=== PATIENT | female | born 1985 | race Hispanic/Latino ===

== ENCOUNTER 2022-10-19 08:00 | Outpatient (RCR) | payer MEDICAID, SELFPAY ==
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
--- NOTE | 2022-09-21 09:18 | HP.PTREVAL ---
Dawna Shields, NHI-C, It has been my pleasure to treat MIGUEL BRADLEY over the last 9 visits for Chronic neck pain, G89.29; Somatic dysfunction lumbar region, M99.03. Please see the progress note below for an update on the physical therapy plan of care! Subjective: Patient reports that she feels that she is getting better- she feels that her shoulders are less heavy- but she has not started her bath bomb season hasn't started yet- but that will happen soon. She is not as much pain. Worst: 01/07 Agg: movement and still wakes her up at night. Not sure if its how she sleeps. She is doing the bands at home to keep moving- she would like to continue therapy. No N/T today but comes and goes depending on how she is moving. Objective/Function: Posture- Good posture in standing. Palpation- Vague tenderness over whole cervical, thoracic, and lumbar spine. Cervical AROM- WNL for all motions. Shoulder AROM- WNL for all motions. Shoulder strength- Grossly 4+/5 for all motions bilaterally. Lumbar AROM- WNL for all motions and mild pain with lumbar extension. Hip PROM- WNL bilaterally. LE strength- Grossly 4+/5 for all motions bilaterally. Core strength- 4+/5. Sensation- WNL bilateral lower extremities. Gait- Pt. ambulates with no gait deviations. Plan Plan: 09/21/22: 2x a week for 4 weeks- Focus on proper lifting techniques. * Add additional UE/CORE exs. *Review work related lifting activities in decrease WBing environment. Continue with trial of aquatic physical therapy to work on improving neck, scapular, core, and back strength. Progress to land if needed to work on improving neck, core, and back strength. Balance/Gait/Functional tests - Balance/Special Test Scores Oswestry Low Back Score: 17 Goals Goal 1:: Pt. will be able to stand/walk for at least 30 minutes with pain < 5/10. Goal Time Frame: 4-6 Weeks Goal Progress: Progressing Goal 2:: Pt. will be able to sleep a full night with no pain. Goal Time Frame: 4-6 Weeks Goal Progress: Progressing Goal 3:: Pt. will be able to sit for at least 1 hour with pain < 5/10. Goal Time Frame: 4-6 Weeks Goal Progress: Progressing Goal 4:: Pt. will rate pain at worst at 5/10 with ADL's. Goal Time Frame: 4-6 Weeks Goal Progress: Progressing Goal 5:: Pt. will rate pain at worst at 5/10 after a day of work. Goal Time Frame: 4-6 Weeks Goal Progress: Progressing Goal 6:: Pt. will improve Oswestry Disability score < 20% in order to improve ADL's. Goal Time Frame: 4-6 Weeks Goal Progress: Progressing Anticipated Interventions Patient/Client Instruction: Educate patient on: Condition, Plan of Care, Benefits of Fitness Program For the Purpose of:: To decrease pain, To improve ability to perform ADL's, To improve performance and independence with ADL's, To assume or resume ADL's, To improve health and function, To improve tolerance to ADL's Therapeutic Exercise to Include: Strength training, Endurance training, Flexibilty training, In an aquatic setting, Active ROM, Dynamic Lumbar Stabilization, Scapular Strength/Stabilization Comment: Focus on neck, scapular, core, and back strengthening. For the Purpose of:: To improve ability to perform ADL's, To improve performance and independence with ADL's, To assume or resume ADL's, To improve tolerance to ADL's Please do not hesitate to contact me at [phone] by phone or if you have questions or concerns regarding this new plan of care! Sincerely, Nancy Joseph DPT
--- NOTE | 2022-10-19 08:22 | HP.PTDCSUM ---
It has been my pleasure to treat MIGUEL BRADLEY referred by XANDER Castle, with the diagnosis of Chronic neck pain, G89.29; Somatic dysfunction lumbar region, M99.03 for a total of 16 visit(s). Discharge Date: Please see the following information for a summary of their discharge status. Subjective: Patient reports that she is about the same. The low back has been the most irritated due to the demand of her job. She is now also working at [employer]. She is making [employer]. She feels that her core is stronger but the pain has not changed a lot. She feels that she is functionally 80% better but pain is 0% better. She goes back to see the MD in a few months. Back Pain Intensity (Out of 10): 8 Shoulders Pain Intensity (Out of 10): 6 % Improvement: 50 Objective/Function: Posture- Good posture in standing. Palpation- Vague tenderness over whole cervical, thoracic, and lumbar spine. Cervical AROM- WNL for all motions. Shoulder AROM- WNL for all motions. Shoulder strength- Grossly 4+/5 for all motions bilaterally. Lumbar AROM- WNL for all motions and mild pain with lumbar extension. Hip PROM- WNL bilaterally. LE strength- Grossly 4+/5 for all motions bilaterally. Core strength- 4+/5. Sensation- WNL bilateral lower extremities. Gait- Pt. ambulates with no gait deviations. Goal 1:: Pt. will be able to stand/walk for at least 30 minutes with pain < 5/10. Goal Progress: Progressing Goal 2:: Pt. will be able to sleep a full night with no pain. Goal Progress: Progressing Goal 3:: Pt. will be able to sit for at least 1 hour with pain < 5/10. Goal Progress: Progressing Goal 4:: Pt. will rate pain at worst at 5/10 with ADL's. Goal Progress: Progressing Goal 5:: Pt. will rate pain at worst at 5/10 after a day of work. Goal Progress: Progressing Goal 6:: Pt. will improve Oswestry Disability score < 20% in order to improve ADL's. Goal Progress: Progressing Plan: 10/19/22: Discharge- encouraged her to return to MD for further evaluation. 09/21/22: 2x a week for 4 weeks- Focus on proper lifting techniques. * Add additional UE/CORE exs. *Review work related lifting activities in decrease WBing environment. Continue with trial of aquatic physical therapy to work on improving neck, scapular, core, and back strength. Progress to land if needed to work on improving neck, core, and back strength. If there are questions or concerns regarding this patient's physical therapy, please feel free to call me at [phone]. Thank you for the referral of this patient. Sincerely, Nancy Joseph, [facility] Balance/Gait/Functional tests - Balance/Special Test Scores Oswestry Low Back Score: 12
== END 2022-10-19 19:00 | disposition home or self-care (01) ==
LOC: PT 08:00
PROVIDERS: PCP Internal Medicine; Referring Provider Nurse Practitioner; Visit Provider Nurse Practitioner
DX: M54.2 Cervicalgia (principal); G89.29 Other chronic pain; M99.03 Segmental and somatic dysfunction of lumbar region; M54.6 Pain in thoracic spine
CPT/HCPCS: 97110; 97113; 97162; 97164

== ENCOUNTER 2023-06-19 15:49 | Inpatient (IN) | payer MEDICAID, SELFPAY ==
[2023-06-19 17:15] VITALS: BP 94/59; PULSE 77; RESP 15; TEMP 36.6; O2SAT 99; BMI 21.4
[2023-06-19 20:35] VITALS: BP 90/51; PULSE 62; RESP 15; TEMP 36.5; O2SAT 97
[2023-06-19] MEDS: Pregabalin 75 MG Capsule PO (20:41)
[2023-06-19] MEDS: oxyCODONE 5 MG Tablet PO (20:42)
[2023-06-19] MEDS: Acetaminophen 325 MG Tablet 650 MG PO (20:42)
[2023-06-19] MEDS: Enoxaparin 30 MG/0.3 ML Syringe SC (20:57)
[2023-06-19 22:00] VITALS: PULSE 62; RESP 15; O2SAT 97
[2023-06-19] MEDS: Ketorolac 15 MG/ML Vial IV (23:09)
[2023-06-19] MEDS: 0.9% Saline Lock 10 ML Syringe IV (23:14)
[2023-06-20] MEDS: 0.9% Saline Lock 10 ML Syringe IV ×2 (00:11→15:10)
[2023-06-20] MEDS: Morphine 2 MG/ML Syringe IV (00:11)
--- NOTE | 2023-06-20 00:24 | NURSING ---
2036 staff to see pt and was noted to be tearful and in much pain rating it a 10/10 to her back. hs medications given right away as well as ice packs and polar care to be set up. rn made aware of pt pain level and mad a call to hospitalist.
--- NOTE | 2023-06-20 00:27 | NURSING ---
2055 staff back in to see pt and pain level improved but is bad according to pt. rn recieved new orders for morphine and toradol Iv and will give laura sl lock to be restarted for medication to given.
[2023-06-20 05:53] LABS: Absolute Lymphocyte Count 2.02 X10^3/uL (0.83-4.51); Absolute Neutrophil Count 4.2 X10^3/uL (2.0-7.7); Basophil# 0.04 X10^3/uL; Basophil% 0.5 % (0-1); Eosinophil# 0.36 X10^3/uL; Eosinophils% 4.9 % (0-5); Hematocrit 35.2 % (37-47); Hemoglobin 11.8 g/dL (12.0-15.0); Lymphocyte # 2.02 X10^3/ul (0.83-4.51); Lymphocyte % 27.6 % (19-41); Mean Corp Hgb Conc 33.5 g/dL (32-36); Mean Corpuscular Hgb 30.3 pg (27.0-32.0); Mean Corpuscular Volume 90.5 fL (81-99); Mean Platelet Vol. 9.7 fl (6.2-12.0); Monocyte# 0.61 X10^3/uL; Monocyte% 8.3 % (0-10); NRBC Flagged by Analyzer 0 % (0-5); Neutrophil # 4.15 X10^3/uL (2.7-7.7); Neutrophil % 56.7 % (47-70); Platelet Count 233 K/mm3 (150-450); RBC Distribution Width CV 12.7 % (11.6-14.6); RBC Distribution Width SD 41.7 fl (35.1-43.9); Red Blood Count 3.89 M/mm3 (4.2-5.4); White Blood Count 7.3 K/mm3 (4.4-11.0)
[2023-06-20] MEDS: Acetaminophen 325 MG Tablet 650 MG PO ×3 (06:15→18:07)
[2023-06-20 06:27] LABS: ALB/GLOB Ratio 0.6 RATIO (0.9-2.4); AST(SGOT) 26 U/L (15-37); Alanine Aminotransfer ALT/SGPT 38 U/L (13-56); Albumin, Serum 2.3 g/dL (3.2-5.0); Alkaline Phosphatase 67 U/L (45-117); Anion Gap 6 (5-15); BUN 16 mg/dL (7-18); BUN/Creat Ratio 30.9 RATIO (10-20); Calcium,Total 8.4 mg/dL (8.5-10.1); Chloride 107 mmol/L (98-107); Creatinine, Serum 0.52 mg/dL (0.55-1.02); EST Glomerular Filtration Rate 140 mL/min (>60); Est Glom Filt Rate - Afr Amer 170 mL/min (>60); Estimated Creatinine Clearance 105.36 ml/min; Globulin 3.8 g/dL (2.2-4.2); Glucose 93 mg/dL (74-106); Magnesium 2.3 mg/dL (1.6-2.6); Potassium 4.1 mmol/L (3.5-5.1); Protein, Total 6.1 g/dL (6.4-8.2); Sodium Level 139 mmol/L (136-145)
[2023-06-20 06:49] VITALS: O2SAT 99
[2023-06-20 07:59] VITALS: BP 96/62; PULSE 78; RESP 18; TEMP 36.2; O2SAT 97
[2023-06-20] MEDS: oxyCODONE 5 MG Tablet PO (10:05)
[2023-06-20] MEDS: Enoxaparin 30 MG/0.3 ML Syringe SC ×2 (10:05→21:31)
[2023-06-20] MEDS: Lidocaine 5% Patch 1 PATCH TOPICAL (10:06)
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
[2023-06-20] MEDS: HYDROmorphone 0.5 MG/0.5 ML SYRINGE IV (15:10)
[2023-06-20 21:25] VITALS: BP 83/47; PULSE 70; RESP 16; TEMP 36.3; O2SAT 100
[2023-06-20] MEDS: Pregabalin 75 MG Capsule PO (21:32)
[2023-06-20] MEDS: oxyCODONE 5 MG Tablet 10 MG PO (21:32)
[2023-06-21] MEDS: Acetaminophen 325 MG Tablet 650 MG PO ×4 (00:10→16:35)
[2023-06-21 06:00] VITALS: BMI 21.2
[2023-06-21] MEDS: oxyCODONE 5 MG Tablet PO ×3 (06:19→16:34)
[2023-06-21 07:49] VITALS: O2SAT 95
[2023-06-21 07:59] VITALS: BP 97/46; PULSE 80; RESP 16; TEMP 35.8; O2SAT 100
[2023-06-21] MEDS: Lidocaine 5% Patch 1 PATCH TOPICAL (10:07)
[2023-06-21] MEDS: Enoxaparin 30 MG/0.3 ML Syringe SC ×2 (10:07→20:06)
[2023-06-21] MEDS: Senna/Docusate Sodium 1 Tablet 2 TABLET PO ×2 (10:08→20:06)
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
[2023-06-21] MEDS: Pregabalin 75 MG Capsule PO (20:06)
[2023-06-21 20:11] VITALS: BP 94/57; PULSE 81; RESP 16; TEMP 36.2; O2SAT 97
[2023-06-21] MEDS: oxyCODONE 5 MG Tablet 10 MG PO (20:39)
[2023-06-22] MEDS: Acetaminophen 325 MG Tablet 650 MG PO ×4 (00:17→17:36)
[2023-06-22] MEDS: oxyCODONE 5 MG Tablet PO ×2 (05:33→12:42)
[2023-06-22] MEDS: 0.9% Saline Lock 10 ML Syringe IV (05:33)
[2023-06-22 06:35] VITALS: O2SAT 95
[2023-06-22 07:46] VITALS: BP 93/53; PULSE 74; RESP 15; TEMP 37.1; O2SAT 99
[2023-06-22] MEDS: Lidocaine 5% Patch 1 PATCH TOPICAL (10:20)
[2023-06-22] MEDS: Senna/Docusate Sodium 1 Tablet 2 TABLET PO ×2 (10:21→21:02)
[2023-06-22] MEDS: Enoxaparin 30 MG/0.3 ML Syringe SC ×2 (10:21→21:03)
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
[2023-06-22 21:00] VITALS: BP 87/51; PULSE 65; RESP 16; TEMP 36.6; O2SAT 98
[2023-06-22] MEDS: oxyCODONE 5 MG Tablet 10 MG PO (21:02)
[2023-06-22] MEDS: Pregabalin 75 MG Capsule PO (21:03)
[2023-06-23] MEDS: Acetaminophen 325 MG Tablet 650 MG PO ×2 (00:28→06:29)
[2023-06-23] MEDS: oxyCODONE 5 MG Tablet PO (06:28)
[2023-06-23 07:00] VITALS: BP 100/70; PULSE 70; RESP 17; TEMP 36.7; O2SAT 97
[2023-06-23 07:05] VITALS: BP 100/70; PULSE 70; RESP 17; TEMP 36.7; O2SAT 97
--- NOTE | 2023-06-23 07:10 | NURSING ---
Patient discharged from rehab and verbalized understanding of all discharge instructions provided.
== END 2023-06-23 07:00 | disposition home or self-care (01) | DRG 862 ==
PROVIDERS: Admitting Provider Internal Medicine; PCP Internal Medicine; Referring Provider Internal Medicine; Visit Provider Internal Medicine
DX: S32.9XXD Fracture of unspecified parts of lumbosacral spine and pelvis, subsequent encounter for fracture with routine healing (principal); F17.210 Nicotine dependence, cigarettes, uncomplicated; S32.10XD Unspecified fracture of sacrum, subsequent encounter for fracture with routine healing; S22.41XD Multiple fractures of ribs, right side, subsequent encounter for fracture with routine healing; S36.039D Unspecified laceration of spleen, subsequent encounter; V89.2XXD Person injured in unspecified motor-vehicle accident, traffic, subsequent encounter; G89.29 Other chronic pain; S22.089D Unspecified fracture of T11-T12 vertebra, subsequent encounter for fracture with routine healing; S32.019D Unspecified fracture of first lumbar vertebra, subsequent encounter for fracture with routine healing; S32.029D Unspecified fracture of second lumbar vertebra, subsequent encounter for fracture with routine healing; S32.039D Unspecified fracture of third lumbar vertebra, subsequent encounter for fracture with routine healing; S32.049D Unspecified fracture of fourth lumbar vertebra, subsequent encounter for fracture with routine healing; S33.2XXD Dislocation of sacroiliac and sacrococcygeal joint, subsequent encounter; S33.4XXD Traumatic rupture of symphysis pubis, subsequent encounter; Z79.899 Other long term (current) drug therapy
CPT/HCPCS: 36415; 80053; 83735; 84100; 85025; 94668; 97110; 97116; 97162; 97166; 97530; 97535; 97802; A4216

== ENCOUNTER → 2023-07-15 | Outpatient (CLI) | payer MEDICAID, SELFPAY ==
--- OUTSIDE RECORDS SUMMARY | 2023-07-15 14:36 | XMS RPT_ITS | CCD ---
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 Outcome/Action Spoke to patient or caregiver: Patient declined Did you use a PCP flex slot to schedule this appointment? No Reason for Outreach Care Gap or Scheduling/Wellness visits Payer: Payor: [facility] MEDICAID / Plan: [facility] COMMUNITY PLAN MEDICAID OF [place] / Product Type: Medicaid / Care Gap Reviewed:: Specialty Scheduling Reminder: Reminder note to check Health Maintenance for items below Health Maintenance items due: HEPATITIS B(1 of 3 - 3-dose series) Never done DTAP,TDAP,TD(1 - Tdap) Never done Navigation Signature: Shefali Westonjourdan Mcdonald June 14, 2022 3:42 PM documented in this encounter [facility] 06-14-2022 Note Patient Outreach (JOURDAN TNAV) MITA RAMIREZ ([id number]) 1985 F Date Time Provider Department 06/14/22 NO PCP NETNAV During your visit today, we recorded the following information about you: Shefali Casey Maged Pss 06/14/2022 3:42 PM Signed POPULATION HEALTH NAVIGATION OUTREACH Action/ Patient Outreach: Spoke with patient to schedule in RST. Pt declined RST Consult as she is getting Aquatics at non [facility] facility. Pt identified by name and : YES, via phone Outreach Outcome/Action Spoke to patient or caregiver: Patient declined Did you use a PCP flex slot to schedule this appointment? No Reason for Outreach Care Gap or Scheduling/Wellness visits Payer: Payor: [facility] MEDICAID / Plan: [facility] COMMUNITY PLAN MEDICAID OF [place] / Product Type: Medicaid / Care Gap Reviewed:: Specialty Scheduling Reminder: Reminder note to check Health Maintenance for items below Health Maintenance items due: HEPATITIS B(1 of 3 - 3-dose series) Never done DTAP,TDAP,TD(1 - Tdap) Never done Navigation Signature: Shefalirajesh Westonjourdan Lynne Pss June 14, 2022 3:42 PM Allergies As of Date: 06/14/2022 Noted Allergy Reaction METRONIDAZOLE 05/21/2019 8 - GI Upset Date Reviewed: 05/17/2022 Reviewed by: Devorah Rodriguez APRN.PSYCH TECH - Fully Assessed Prescriptions as of 06/14/2022 - meloxicam (MOBIC) 15 mg tablet Take 1 tablet by mouth once daily. With food. - pregabalin (LYRICA) 50 mg capsule Take 1 capsule by mouth three times daily for 30 days. - busPIRone (BUSPAR) 10 mg tablet Take 1 tablet by mouth three times daily. - omeprazole (PRILOSEC) 20 mg capsule Take 1 capsule by mouth daily before breakfast. - nortriptyline (PAMELOR) 50 mg capsule Take 1 capsule by mouth daily at bedtime. - cyclobenzaprine (FLEXERIL) 10 mg tablet Take 0.5-1 tablets by mouth twice daily as needed for Muscle Spasm. Problem List As Of Date 06/14/2022 Noted Resolved Adjustment disorder with depressed mood [F43.21]12/31/2007 08/10/2010 PMH - PAST MEDICAL HISTORY OF Urinary tract infection, site not specified [N3* 04/04/2016 ABNORMAL GLANDULAR PAP SMEAR OF CERVIX [R87.619] Lumbago [M54.50] 06/17/2008 08/18/2015 Cervicalgia [M54.2] 07/05/2008 08/18/2015 Situational mixed anxiety and depressive disord*09/04/2010 Numbness and tingling [R20.0, R20.2] 08/06/2013 08/18/2015 Gastroesophageal reflux disease [K21.9] 08/18/2015 Gastroesophageal reflux disease without esophag*08/24/2015 08/24/2015 Abdominal pain, LUQ [R10.12] 08/24/2015 08/24/2015 Encounter Status:Closed by SHEFALI ANDUJAR on 06/14/22 [facility] 05-17-2022 Note HNO ID: [id number] Author: RT Aubree(R) Service: Radiology Author Type: Technologist Type: Progress Notes Filed: 05/17/2022 9:46 AM Note Text: Radiology Service Progress Note PATIENT NAME: Mita Ramirez DATE OF SERVICE: May 17, 2022 TIME: 9:34 AM PATIENT IDENTITY VERIFICATION COMPLETED USING TWO (2) IDENTIFIERS: Name and Date of confirmed by patient verbally. FALL SCREENING: Has the patient had 2 falls in the last year or 1 fall with injury or currently using an Ambulatory Assistive Device (Walker, Cane, Wheelchair, Crutches, etc.)? No PATIENT GENDER DATA: Female. status: : No status: NO. PATIENT RELEVANT IMPLANT DATA REVIEWED: Yes RADIOLOGY DEPARTMENT: General X-ray: Exam(s) Completed: Spine X-Ray(s): Cervical AP / LAT / OBL / FLEX-EXT PERIPHERAL IV DATA: Not applicable SIGNED BY: RT Aubree(R) May 17, 2022 9:34 AM [facility] 05-17-2022 Note HNO ID: [id number] Author: Tess Anguiano MA Service: ? Author Type: Auto Transmission Specialist Type: Progress Notes Filed: 05/17/2022 9:06 AM Note Text: Review of Systems Constitutional: Negative for activity change, chills, fever and unexpected weight change. Gastrointestinal: Negative for bowel retention or incontinence Genitourinary: Negative for difficulty urinating. Negative for bladder retention or incontinence Musculoskeletal: Positive for arthralgias, back pain, gait problem, myalgias, neck pain and neck stiffness. Negative for joint swelling. Neurological: Positive for weakness, numbness and headaches. Psychiatric/Behavioral: Positive for dysphoric mood and sleep disturbance. Negative for suicidal ideas. The patient is nervous/anxious. [facility] 05-17-2022 Note HNO ID: [id number] Author: Devorah Rodriguez APRN.[facility] Service: ? Author Type: Nurse Practitioner Type: Progress Notes Filed: 05/17/2022 9:06 AM Note Text: [facility] Today's Date: 05/17/2022 Last Visit: VV with Dr. Carr 07/10/21 Name: Mita Ramirez : 1985 Chief complaint: Entire Low Back Pain History of Present Illness: Since last encounter, Mita Ramirez; reports that the chronic problem(s) detailed above are Worse. Reports her pain started to get more intense in the last week. She has been taking left over Percocet to help alleviate her pain with no relief. No known injuries. 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 Lumbar MBB/RFA were discussed with the patient at that time. TPI's were also ordered at that time. Patient has not followed up since this time. She has not bee taking her Lyrica. She stopped this, per her OARRS her last refill was in 2021. Pain Description: Timing: constant Character: Sharp, Cramps, Aching, and pulsating Primary Location: Neck, mid and low back Radiation: wraps around her RIGHT hip Exacerbating factors: unable to pinpoint exacerbating factors/positions Relieving factors: unable to pinpoint positions/factors that are mitigating The patient reports she has intermittent sleep disruptions. The patient denies difficulty with bowel or bladder control. New Problems reported: See above Recall: Current Status: INTAKE PAIN ASSESSMENT 06/01/2021 05/17/2022 Are you having pain associated with your visit today? Yes, Provider notified Yes, Provider notified Pain Scales Verbal (Numeric Rating or Visual Analog Scale) Verbal (Numeric Rating or Visual Analog Scale) Pain Level 6 7 Pain Location Back-Lower Generalized Description Dull;Pressure Pressure;Pulsating Duration Amount of Time - - Duration Units Years Years Frequency Continuous Continuous Intervention/Comfort measure Reposition;Relaxation Reposition;Relaxation;Positionin g Comments - - Pain Assessment - - Current Pain Medications: Opioids: Percocet (Taking an old RX) NSAIDS: Mobic (Not taking) Anti-depressants: Buspar, Pamelor (Not taking) Anti-convulsants: Muscle relaxants: Flexeril (Not Taking) Others: Medical Marijuana Analgesia: not adequate Current Anti-Coagulant Use: No Risk Assessment: KALPESH-7: KALPESH - 7 SCORES 05/04/2021 KALPESH-7 Score 10 (0-4) minimal anxiety, (5-9) mild anxiety, (10-14) moderate anxiety, (15-21) severe anxiety PHQ-9: PHQ-9 03/14/2020 04/06/2021 05/04/2021 Score 14 5 15 (0-4) minimal depression, (5-9) mild depression, (10-14) moderate depression, (15-19) moderately severe depression, (20-27) severe depression Opioid Risk Tool: Family History of Substance Abuse: Yes Alcohol: 3 - Male Illegal Drugs: 3 - Male Personal History of Substance Abuse: Yes, 0 - No Psychological Disease: Yes Depression: 1 - Yes Risk Total: 7 Total Score Risk Category: Moderate Risk 4-7 (0-3, low risk or no risk; 4-7, moderate risk, 8+, high risk) Compliance: PDMP website checked and validated. All prescriptions have been APPROPRIATELY filled. No suspicious activity was identified. 05/17/2022 by Devorah Rodriguez APRN.PSYCH TECH RX Medical Marijuana Allergies: ALLERGIES Allergen Reactions Metronidazole GI Upset Data Reviewed: Reviewed personally on today's date 05/17/2022 Relevant Imaging: MRI Spine Report MRI LUMBAR SPINE WO IVCON Exam End: 05/29/2021 9:16 AM (Final result) Narrative: * * *Final Report* * * DATE OF EXAM: May 29 2021 9:16AM [facility] 0303 - MRI LUMBAR SPINE WO IVCON / PROCEDURE REASON: multiple diagnoses * * * * Physician Interpretation * * * * EXAMINATION: MRI LUMBAR SPINE WO IVCON CLINICAL HISTORY: Lumbar radiculopathy Spinal stenosis of lumbar region with neurogenic claudication TECHNIQUE: Routine lumbosacral spine MR protocol without gadolinium. MQ: [id number] COMPARISON: None. RESULT: Counting reference: Lumbosacral junction. For the purposes of this report, L4-5 is considered the level of the iliac crest and assume there are 5 lumbar-type vertebrae. Anatomic variant: None. Localizer images: No additional findings. Alignment: Alignment is anatomic. Bone marrow signal/fracture: No evidence of pathologic marrow infiltration. No evidence of prior fracture. Conus: The conus is within normal limits of signal intensity and morphology. Paraspinal soft tissues: Paraspinal soft tissues are within normal limits. Lower thoracic spine: Visualized lower thoracic canal and foramina are patent. T12-L1: Canal and foramina are patent. L1-L2: Canal and foramina are patent. L2-L3: Canal and foramina are patent L3-L4: Canal and foramina are patent L4-L5: Disc bulge as well as facet ligamentous hypertrophy resulting mild (more content not included)... [facility] 05-17-2022 Miscellaneous Notes Sent in consult to physical therapy Confirmation #[id number] documented in this encounter [facility] 05-17-2022 Instructions Devorah Rodriguez APRN.[facility] - 05/17/2022 9:04 AM EST Activity as tolerated Use Ice and/or heat as tolerated as needed documented in this encounter [facility] 05-17-2022 History of Presen t illness Narrative Review of Systems Constitutional: Negative for activity change, chills, fever and unexpected weight change. Gastrointestinal: Negative for bowel retention or incontinence Genitourinary: Negative for difficulty urinating. Negative for bladder retention or incontinence Musculoskeletal: Positive for arthralgias, back pain, gait problem, myalgias, neck pain and neck stiffness. Negative for joint swelling. Neurological: Positive for weakness, numbness and headaches. Psychiatric/Behavioral: Positive for dysphoric mood and sleep disturbance. Negative for suicidal ideas. The patient is nervous/anxious. Images from the original note were not included. [facility] Today's Date: 05/17/2022 Last Visit: VV with Dr. Carr 07/10/21 Name: Mita Ramirez : 1985 Chief complaint: Entire Low Back Pain History of Present Illness: Since last encounter, Mita Ramirez; reports that the chronic problem(s) detailed above are Worse. Reports her pain started to get more intense in the last week. She has been taking left over Percocet to help alleviate her pain with no relief. No known injuries. 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 Lumbar MBB/RFA were discussed with the patient at that time. TPI's were also ordered at that time. Patient has not followed up since this time. She has not bee taking her Lyrica. She stopped this, per her OARRS her last refill was in 2021. Pain Description: Timing: constant Character: Sharp, Cramps, Aching, and pulsating Primary Location: Neck, mid and low back Radiation: wraps around her RIGHT hip Exacerbating factors: unable to pinpoint exacerbating factors/positions Relieving factors: unable to pinpoint positions/factors that are mitigating The patient reports she has intermittent sleep disruptions. The patient denies difficulty with bowel or bladder control. New Problems reported: See above Recall: Current Status: INTAKE PAIN ASSESSMENT 06/01/2021 05/17/2022 Are you having pain associated with your visit today? Yes, Provider notified Yes, Provider notified Pain Scales Verbal (Numeric Rating or Visual Analog Scale) Verbal (Numeric Rating or Visual Analog Scale) Pain Level 6 7 Pain Location Back-Lower Generalized Description Dull;Pressure Pressure;Pulsating Duration Amount of Time - - Duration Units Years Years Frequency Continuous Continuous Intervention/Comfort measure Reposition;Relaxation Reposition;Relaxation;Positionin g Comments - - Pain Assessment - - Current Pain Medications: Opioids: Percocet (Taking an old RX) NSAIDS: Mobic (Not taking) Anti-depressants: Buspar, Pamelor (Not taking) Anti-convulsants: Muscle relaxants: Flexeril (Not Taking) Others: Medical Marijuana Analgesia: not adequate Current Anti-Coagulant Use: No Risk Assessment: KALPESH-7: KALPESH - 7 SCORES 05/04/2021 KALPESH-7 Score 10 (0-4) minimal anxiety, (5-9) mild anxiety, (10-14) moderate anxiety, (15-21) severe anxiety PHQ-9: PHQ-9 03/14/2020 04/06/2021 05/04/2021 Score 14 5 15 (0-4) minimal depression, (5-9) mild depression, (10-14) moderate depression, (15-19) moderately severe depression, (20-27) severe depression Opioid Risk Tool: Family History of Substance Abuse: Yes Alcohol: 3 - Male Illegal Drugs: 3 - Male Personal History of Substance Abuse: Yes, 0 - No Psychological Disease: Yes Depression: 1 - Yes Risk Total: 7 Total Score Risk Category: Moderate Risk 4-7 (0-3, low risk or no risk; 4-7, moderate risk, 8+, high risk) Compliance: PDMP website checked and validated. All prescriptions have been APPROPRIATELY filled. No suspicious activity was identified. 05/17/2022 by Devorah Rodriguez APRN.PSYCH TECH RX Medical Marijuana Allergies: ALLERGIES Allergen Reactions Metronidazole GI Upset Data Reviewed: Reviewed personally on today's date 05/17/2022 Relevant Imaging: MRI Spine Report MRI LUMBAR SPINE WO IVCON Exam End: 05/29/2021 9:16 AM (Final result) Narrative: * * *Final Report* * * DATE OF EXAM: May 29 2021 9:16AM [facility] 0303 - MRI LUMBAR SPINE WO IVCON / PROCEDURE REASON: multiple diagnoses * * * * Physician Interpretation * * * * EXAMINATION: MRI LUMBAR SPINE WO IVCON CLINICAL HISTORY: Lumbar radiculopathy Spinal stenosis of lumbar region with neurogenic claudication TECHNIQUE: Routine lumbosacral spine MR protocol without gadolinium. MQ: [id number] COMPARISON: None. RESULT: Counting reference: Lumbosacral junction. For the purposes of this report, L4-5 is considered the level of the iliac crest and assume there are 5 lumbar-type vertebrae. Anatomic variant: None. Localizer images: No additional findings. Alignment: Alignment is anatomic. Bone marrow signal/fracture: No evidence of pathologic marrow infiltration. No evidence of prior fracture. Conus: The conus is within normal limits of signal intensity and morphology. Paraspinal soft tissues: Paraspinal soft tissues are within normal limits. Lower thoracic spine: Visualized lower thoracic canal and foramina are patent. T12-L1: Canal and foramina are patent. L1-L2: Canal and foramina are patent. L2-L3: Canal and foramina are patent L3-L4: Canal and foramina are patent L4-L5: Disc bulge as well as facet ligamentous hypertrophy resulting mild spinal canal and mild bilateral foraminal stenosis. L5-S1: Disc bulge and facet hypertrophy with mild bilateral foraminal stenosis. Height T2 signal within the posterior periphery of the intervertebral disc suggesting annular fissure. Sacrum and iliac wings: The visualized sacrum and iliac wings are within normal limits. Impression: IMPRESSION: Mild degenerative changes of the lower lumbar spine as discussed level by level in the body of the report. Anatomic Thoracic/Lumbar Variant: None. L4-5 is considered the level of the iliac crest and assume there are 5 lumbar-type vertebrae. Senior Underwriting Assistant: RICHA Transcribe Date/Time: May 29 2021 10:01A Dictated by : CIPRIANO RIOJAS MD This examination was interpreted and the report reviewed and electronically signed by: CIPRIANO RIOJAS MD on May 29 2021 10:09AM EST XR Thoracic and lumbar Spine 03/17/20: RESULT: Post-op assessment: N/A Alignment: Normal. No scoliosis, listhesis, or kyphosis. Vertebral bodies: No compression fracture deformity. Spine articulations: Disc spaces are maintained. No significant facet arthrosis. Soft tissues: Normal. Other: No acute findings of the included chest. Lumbar: FINDINGS: Frontal, lateral and cone-down radiographs of the lumbosacral spine demonstrate five lumbar type vertebral bodies. The vertebral body heights and intervertebral disc spaces are well maintained with normal alignment. Mild hypertrophic facet change noted at the lower 2 levels. The soft tissues are unremarkable. Recent labs: Creatinine Date Value Ref Range Status 07/11/2015 0.72 0.70 - 1.40 mg/dL Final Pain Procedures: DATE PROCEDURE IMPROVEMENT None to date at this practice Current Medications, Past Medical History, Past Surgical History, Family History, Social History and Review of Systems: On today's date, 05/17/2022, noted above, I have confirmed and edited as necessary, the PFSH and ROS obtained by others. Physical Exam: 05/17/22 0837 Pulse: 76 Resp: 16 SpO2: 99% Constitutional: normal weight HEENT: Normal Cephalic, Atraumatic, Non-icteric sclera Eyes: Conjunctiva clear. No discharge from eyes Cardiovascular: Appears well perfused Lymphatic: No visible regional lymphadenopathy Skin: No visible rashes or ecchymosis Psychiatric: Full affect, Alert, PleasantMSK: Extremities: CARVAJAL, no deficits or edema Gait: Normal. Ambulates unassisted Neuro: Motor Strength: Upper and lower extremity 5/5 bilaterally Sensory: intact to light touch Generalized diffuse tenderness throughout Diagnoses: (M79.18) Myofascial pain (primary encounter diagnosis) (M54.2, G89.29) Chronic neck pain (M99.03) Somatic dysfunction of lumbar region (M54.6) Thoracic spine pain (Z79.1) NSAID long-term use Impression & Plan: 36 year old female, who presents with complaint(s) of diffuse neck, mid and low back pain. Reports she has noticed a bid increase in her overall pain in the last 1-2 weeks. 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 Given the time of year she is a lot busier. She has not been taking her Meloxicam as she ran out of refills. She did not take the Lyrica consistently. She does not like to take medications routinely. Medications: Refill: Requested Prescriptions Signed Prescriptions Disp Refills meloxicam (MOBIC) 15 mg tablet 30 tablet 2 Sig: Take 1 tablet by mouth once daily. With food. NSAIDS use(s), side effects and risks of long-term side effects were reviewed today. Recommend use of OTC famotidine or PPI if not already taking while using any NSAIDS. Patient with verbalized understanding. UDS, NAOIC/ORT: Reviewed and consistent, ORT moderate risk Functional Rastafarian: Physical Therapy (Aquatic) Additional Studies: Cervical XR, CMP to eval renal fxns due to NSAIDS Referrals: Additional: Consider TPI Patient is happy and agreeable with this plan. All questions were answered and patient verbalized understanding. Depending on response to the above plan, consider: Consider restarting Lyrica Follow-up: 6-8 weeks for evaluation of response to treatment plan and optimization Attribution: In addition to reviewing the information noted above, some elements copied from my most recent clinical note(s), including the physical exam (completed in entirety today), and the impression and plan sections, have been updated where appropriate. All reflect current medical decision making from today's date. Devorah Rodriguez APRN.PSYCH TECH Pain Management [facility] documented in this encounter [facility] documented as of this encounter (statuses as of 05/17/2022) [facility]02-24-2016 History of Past illness Narrative* Problem Noted Date Resolved Date Gastroesophageal reflux disease without esophagi tis 08/24/2015 08/24/2015 Abdominal pain, LUQ 08/24/2015 08/24/2015 Numbness and tingling 08/06/2013 08/18/2015 Last Assessment & Plan: Patient says she has numbness and tingling of her breast, which comes as a surge which comes on and off for the last one month, she also has tenderness and lumpiness in her breast, a week before the cycle starts and this is very concerning to her. Cervicalgia 07/05/2008 08/18/2015 Lumbago 06/17/2008 08/18/2015 Adjustment disorder with depressed mood 12/31/19 08 08/10/2010 Urinary tract infection, site not specified 04/04/2016 Overview: Recurrent UTI's documented as of this encounter (statuses as of 05/17/2022) [facility] History of Past illness Narrative* Problem Noted Date Resolved Date Gastroesophageal reflux disease without esophagi tis 08/24/2015 08/24/2015 Abdominal pain, LUQ 08/24/2015 08/24/2015 Numbness and tingling 08/06/2013 08/18/2015 Last Assessment & Plan: Patient says she has numbness and tingling of her breast, which comes as a surge which comes on and off for the last one month, she also has tenderness and lumpiness in her breast, a week before the cycle starts and this is very concerning to her. Cervicalgia 07/05/2008 08/18/2015 Lumbago 06/17/2008 08/18/2015 Adjustment disorder with depressed mood 12/31/19 08 08/10/2010 Urinary tract infection, site not specified 04/04/2016 Overview: Recurrent UTI's documented as of this encounter (statuses as of 06/14/2022) [facility] History of Past illness Narrative* Problem Noted Date Resolved Date Gastroesophageal reflux disease without esophagi tis 08/24/2015 08/24/2015 Abdominal pain, LUQ 08/24/2015 08/24/2015 Numbness and tingling 08/06/2013 08/18/2015 Last Assessment & Plan: Patient says she has numbness and tingling of her breast, which comes as a surge which comes on and off for the last one month, she also has tenderness and lumpiness in her breast, a week before the cycle starts and this is very concerning to her. Cervicalgia 07/05/2008 08/18/2015 Lumbago 06/17/2008 08/18/2015 Adjustment disorder with depressed mood 12/31/19 08 08/10/2010 Urinary tract infection, site not specified 04/04/2016 Overview: Recurrent UTI's documented as of this encounter (statuses as of 06/18/2022) [facility] History of Past illness Narrative* Problem Noted Date Resolved Date Gastroesophageal reflux disease without esophagi tis 08/24/2015 08/24/2015 Abdominal pain, LUQ 08/24/2015 08/24/2015 Numbness and tingling 08/06/2013 08/18/2015 Last Assessment & Plan: Patient says she has numbness and tingling of her breast, which comes as a surge which comes on and off for the last one month, she also has tenderness and lumpiness in her breast, a week before the cycle starts and this is very concerning to her. Cervicalgia 07/05/2008 08/18/2015 Lumbago 06/17/2008 08/18/2015 Adjustment disorder with depressed mood 12/31/19 08 08/10/2010 Urinary tract infection, site not specified 04/04/2016 Overview: Recurrent UTI's documented as of this encounter (statuses as of 08/09/2022) [facility] History of Past illness Narrative* Problem Noted Date Resolved Date Gastroesophageal reflux disease without esophagi tis 08/24/2015 08/24/2015 Abdominal pain, LUQ 08/24/2015 08/24/2015 Numbness and tingling 08/06/2013 08/18/2015 Last Assessment & Plan: Patient says she has numbness and tingling of her breast, which comes as a surge which comes on and off for the last one month, she also has tenderness and lumpiness in her breast, a week before the cycle starts and this is very concerning to her. Cervicalgia 07/05/2008 08/18/2015 Lumbago 06/17/2008 08/18/2015 Adjustment disorder with depressed mood 12/31/19 08 08/10/2010 Urinary tract infection, site not specified 04/04/2016 Overview: Recurrent UTI's documented as of this encounter (statuses as of 10/04/2022) [facility] History of Past illness Narrative* Problem Noted Date Diagnosed Date Resolved Date Gastroesophageal reflux dise ase without esophagitis 08/24/2015 08/24/2015 Abdominal pain, LUQ 08/24/2015 08/24/19 16 Numbness and tingling 08/06/20132015 Last Assessment & Plan: Patient says she has numbness and tingling of her breast, which comes as a surge which comes on and off for the last one month, she also has tenderness and lumpiness in her breast, a week before the cycle starts and this is very concerning to her. Cervicalgia 07/05/2008 08/18/2015 Lumbago 06/17/2008 08/18/2015 Adjustment disorder with depressed mood 12/31/2007 08/10/2010 Urinary tract infection, site not specified 04/04/2016 Overview: Recurrent UTI's documented as of this encounter (statuses as of 01/12/2023) [facility] History of Past illness Narrative* Problem Noted Date Diagnosed Date Resolved Date Gastroesophageal reflux dise ase without esophagitis 08/24/2015 08/24/2015 Abdominal pain, LUQ 08/24/2015 08/24/19 16 Numbness and tingling 08/06/20132015 Last Assessment & Plan: Patient says she has numbness and tingling of her breast, which comes as a surge which comes on and off for the last one month, she also has tenderness and lumpiness in her breast, a week before the cycle starts and this is very concerning to her. Cervicalgia 07/05/2008 08/18/2015 Lumbago 06/17/2008 08/18/2015 Adjustment disorder with depressed mood 12/31/2007 08/10/2010 Urinary tract infection, site not specified 04/04/2016 Overview: Recurrent UTI's documented as of this encounter (statuses as of 04/06/2023) [facility] Myofascial pain- Primary Mylagia and myositis, unspecified Chronic neck pain Cervicalgia Somatic dysfunction of lumbar region Nonallopathic lesion of lumbar region, not elsewhere classified Thoracic spine pain Pain in thoracic spine NSAID long-term use Encounter for long-term (current) use of non-steroidal anti-inflammatories documented in this encounter [facility] note* Diagnosis Myofascial pain- Primary Mylagia and myositis, unspecified Cervical spondylosis without myelopathy Lumbar spondylosis Lumbosacral spondylosis without myelopathy documented [facility] this encounter [facility] Diagnosis Lumbar spondylosis- Primary Lumbosacral spondylosis without myelopathy Myofascial pain Mylagia and myositis, unspecified Cervical spondylosis without myelopathy documented in this encounter [facility] - Pending Review Specialty Diagnoses / Procedures Referred By Contac t Referred To Contact Physical Therapy Diagnoses Chronic neck pain Somatic dysfunction of lumbar region Thoracic spine pain Procedures CONSULT TO PHYSICAL THERAPY Devorah Rodriguez APRN.PSYCH TECH [address] [place] [address] Referral ID Status Reason Start Date Expiration Date V isits Requested Visits Authorized [id number] Pending Review 05/17/2022 08/15/2022 1 1 * Diagnostic Procedure Only (Routine) - Closed Specialty Diagnoses / Procedures Referred By Contac t Referred To Contact XR IMAGING Diagnoses Chronic neck pain Procedures XR CERV OTHER 6V AP/LAT/FLX/EXT/OBL RADEX SPINE CERVICAL 6 OR MORE VIEWS Devorah Rodriguez TRESTLE MECHANIC.PSYCH TECH [address] [place] [address] Xr Imaging Referral ID Status Reason Start Date Expiration Date V isits Requested Visits Authorized [id number] Closed Auto-Generate d Referral 05/17/2022 06/16/2023 1 1 [facility] Summary Purpose Family History No Family History Records FoundNo Family History Records FoundNo Family History Records FoundNo Family History Records FoundNo Family History Records Found Advance Directives No Advanced Directives Records FoundNo Advanced Directives Records FoundNo Advanced Directives Records FoundNo Advanced Directives Records FoundNo Advanced Directives Records Found Additional Source Comments INFORMATION SOURCE (unrecogn ized section and content) DATE CREATED AUTHOR AUTHOR'S ORGANIZ ATION 10/03/2021 Viraj Erickson [facility] DATE CREATED AUTHOR AUTHOR'S ORGANIZ ATION 06/21/2022 [facility] DATE CREATED AUTHOR AUTHOR'S ORGANIZ ATION 04/08/2023 [facility] DATE CREATED AUTHOR AUTHOR'S ORGANIZ ATION 06/20/2023 [facility] nter Source Comments (unrecognize d section and content) In the event this informatio n is protected by the Federal Confidentiality of Alcohol and Drug Abuse Patient Records regulations: The Federal rules restrict any use of the information to criminally investigate or prosecute any alcohol or drug abuse patient.[facility] the event this information is protected by the Federal Confidentiality of Alcohol and Drug Abuse Patient Records regulations: The Federal rules restrict any use of the information to criminally investigate or prosecute any alcohol or drug abuse patient.[facility] the event this information is protected by the Federal Confidentiality of Alcohol and Drug Abuse Patient Records regulations: The Federal rules restrict any use of the information to criminally investigate or prosecute any alcohol or drug abuse patient.[facility] the event this information is protected by the Federal Confidentiality of Alcohol and Drug Abuse Patient Records regulations: The Federal rules restrict any use of the information to criminally investigate or prosecute any alcohol or drug abuse patient.[facility] the event this information is protected by the Federal Confidentiality of Alcohol and Drug Abuse Patient Records regulations: The Federal rules restrict any use of the information to criminally investigate or prosecute any alcohol or drug abuse patient.[facility] the event this information is protected by the Federal Confidentiality of Alcohol and Drug Abuse Patient Records regulations: The Federal rules restrict any use of the information to criminally investigate or prosecute any alcohol or drug abuse patient.[facility] the event this information is protected by the Federal Confidentiality of Alcohol and Drug Abuse Patient Records regulations: The Federal rules restrict any use of the information to criminally investigate or prosecute any alcohol or drug abuse patient.[facility] the event this information is protected by the Federal Confidentiality of Alcohol and Drug Abuse Patient Records regulations: The Federal rules restrict any use of the information to criminally investigate or prosecute any alcohol or drug abuse patient.[facility] Reason for Visit (unrecogniz ed section and content) Reason Comments Patient Update Consult Reason Comments Appointment Reason Comments Orders Reason Comments Follow Up Back Pain Reason Comments Patient Question Reason Comments Established Patient Follow Up Low Back Pain Pain (Shoulder Pain) between Neck Pain Care Teams (unrecognized sec tion and content) Tapeman Relationship Specialty Start Date End Date Annie Merrill MD [address], [place] [phone] PCP - General Internal Medicine 08/06/13 Tapeman Relationship Specialty Start Date End Date Annie Merrill MD [address], [place] [id number] PCP - General Internal Medicine 08/06/13 Devorah Rodriguez, TRESTLE MECHANIC.PSYCH TECH [address], [place] [phone] Referring Pain Management 05/18/22 Tapeman Relationship Specialty Start Date End Date Annie Merrill MD [address], [place] [phone] PCP - General Internal Medicine 08/06/13 Devorah Rodriguez, TRESTLE MECHANIC.PSYCH TECH [address] [place] [address] Referring Pain Management 05/18/22 Tapeman Relationship Specialty Start Date End Date Annie Merrill MD [address] [place] [address] PCP - General Internal Medicine 08/06/13 Devorah Rodriguez, TRESTLE MECHANIC.PSYCH TECH [address] [place] [address] Referring Pain Management 05/18/22 Tapeman Relationship Specialty Start Date End Date Annie Merrill MD [address], [place] [id number] PCP - General Internal Medicine 08/06/13 Devorah Rodriguez, TRESTLE MECHANIC.PSYCH TECH [address] [place] [address] Referring Pain Management 05/18/22 Tapeman Relationship Specialty Start Date End Date Annie Merrill MD [address] [facility] [place] [address] PCP - General Internal Medicine 08/06/13 Devorah Rodriguez, TRESTLE MECHANIC.PSYCH TECH [address] [place] [address] Referring Pain Management 05/18/22 Tapeman Relationship Specialty Start Date End Date Annie Merrill MD [address], [place] [phone] PCP - General Internal Medicine 08/06/13 Devorah Rodriguez, TRESTLE MECHANIC.PSYCH TECH [address] [place] [address] Referring Pain Management 05/18/22 FOR RECORDS PERTAINING TO PATIENTS WHO ARE OR HAVE BEEN ENROLLED IN A CHEMICAL DEPENDENCY/SUBSTANCEABUSE PROGRAM, SOME INFORMATION MAY BE OMITTED. This clinical summary was aggregated from multiple sources. Caution should be exercised in using it in the provision of clinical care. This summary normalizes information from multiple sources, and as a consequence, information in this document may materially change the coding, format and clinical context of patient data. In addition, data may be omitted in some cases. CLINICAL DECISIONS SHOULD BE BASED ON THE PRIMARY CLINICAL RECORDS. [facility] [employer] [facility] provides no warranty or guarantee of the accuracy or completeness of information in this document.
[2023-07-15 17:25] LABS: Amphetamine Urine VISTA NEGATIVE (<1000 ng/mL); Barbiturate Urine VISTA NEGATIVE (< 200 ng/mL); Benzodiazepine Urine VISTA NEGATIVE (< 200 ng/mL); Cocaine Urine VISTA NEGATIVE (< 300 ng/mL); Ecstacy Urine VISTA NEGATIVE (< 500 ng/mL); Methadone Urine VISTA NEGATIVE (< 300 ng/mL); PCP Urine VISTA NEGATIVE (< 25 ng/mL); THC Urine VISTA POSITIVE (< 50 ng/mL); Vista UDS pH Range 6
== END | disposition home or self-care (01) ==
PROVIDERS: Referring Provider Anesthesiology Pain Medicine; Visit Provider Anesthesiology Pain Medicine
DX: F11.29 Opioid dependence with unspecified opioid-induced disorder (principal)
CPT/HCPCS: 80307

== ENCOUNTER 2024-01-10 05:41 | Day surgery (SDC) | payer MEDICAID, SELFPAY ==
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
[2024-01-10] VITALS (9 sets, daily range): BP systolic 85–110; BP diastolic 49–68; PULSE 62–105; RESP 16–20; TEMP 36.1–36.5; O2SAT 96–100; BMI 21.1
--- NOTE | 2024-01-10 | FALS_PTH ---
PATIENT: MIGUEL MENDOZA LOC: [facility] [place] U#:[id number] AGE/SX: 38/F ROOM: RE01/10/[address]: Dr. Loulou Solomon, MDDOB: 1985 BED: DIS: 01/10/2024 SPEC #: [id number] RECD: 01/10/24 12:53 STATUS: ORHINI VIRA #: [id number] KIERAN: 01/10/24 00:[address]: Loulou Solomon DEPT: SURGICAL PATHOLOGY RECD BY: Monique Mc ENTERED: 01/10/24 13:10 SP TYPE: FALL TUBES OTHR DR: No Primary Care Phys Tissues: Fallopian tube Procedures: Surgery Specimen Level II HEADER OPERATION: Laparoscopic, salpingectomy PRE-OP DIAGNOSIS: Desired sterilization TISSUE SUBMITTED: Bilateral fallopian tubes MICROSCOPIC DIAGNOSIS Bilateral fallopian tubes, salpingectomy: Bilateral fallopian tubes, no pathologic diagnosis. SJ: 01/13/2024 MICROSCOPIC DESCRIPTION Slides are reviewed. GROSS DESCRIPTION Received in fixative is one container labeled with the patient's name and designated bilateral fallopian tubes. The specimen consists of bilateral fallopian tubes including fimbrial ends measuring 5.0 cm in length and 0.7 cm in diameter and 7.0cm in length and 0.5cm in diameter. The fallopian tubes are not identified as right or left. Sections reveal unremarkable cut surfaces. Offset Printer sections are submitted in two cassettes with each cassette containing one fallopian tube. / JARRETT: 01/10/2024 TC:4 CPT: 42663 x2
[2024-01-10 06:11] LABS: Internal QC Validated? YES +Cl - CLEAR BKGD; Pregnancy, Urine Negative Negative
[2024-01-10] MEDS: Lactated Ringers 1,000 ML 15 ML IV (06:35)
[2024-01-10 07:04] LABS: Hematocrit 39.7 % (37-47); Hemoglobin 13.7 g/dL (12.0-15.0); Mean Corp Hgb Conc 34.5 g/dL (32-36); Mean Corpuscular Hgb 31.1 pg (27.0-32.0); Mean Corpuscular Volume 90.2 fL (81-99); Mean Platelet Vol. 10.6 fl (6.2-12.0); Platelet Count 171 K/mm3 (150-450); RBC Distribution Width CV 11.9 % (11.6-14.6); RBC Distribution Width SD 39.6 fl (35.1-43.9); White Blood Count 8.4 K/mm3 (4.4-11.0)
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
--- NOTE | 2024-01-10 07:36 | DCINST_ITS ---
Discharge Instructions Diet Discharge Diet: No restrictions Activity May resume sexual activity in: 2 weeks Lifting Restrictions: 20-25 lbs Dressing / Incision Call your doctor if your incision/area has: Continuous Slow Oozing, Sudden Increased Bleeding, Increased Pain/ Swelling, Increased Redness, Foul Smelling Discharge and Swelling at the incision site Call your doctor if you observe: Fever of 101 or Higher, Inability to urinate, Inability to have a bowel movement, Using more than 1 pad per hour and Uncontrolled pain Additional Dressing/Incision Instructions:: You have skin glue over your incision sites, do not pick off. You may shower and let the soap and water run over the incision sites and dab dry. Follow Up Care Please Follow Up With: Loulou Solomon MD When: 1-2 weeks post OP if you need an appointment please call [phone] Test Results: Test results from this visit will be discussed in further detail at your follow- up appointment, if applicable. Discharge Plan Admission Attending Provider: Loulou Solomon Primary Care Provider: Care Physician,Doris Primary Instructions Print Language: Micronesian Discharge Orders/Prescriptions Prescriptions: No Action diphenhydramine-acetaminophen [Acetadryl] 25-500 mg tablet 2 tab PO QHS pregabalin 75 mg Capsule 75 mg PO TID Referrals / Follow Up: Care Physician,Doris Primary [Primary Care Provider] - Disposition Disposition (needs filled in before D/C Order can be placed): Home, Self Care
--- NOTE | 2024-01-10 07:37 | OP.PCM_ITS ---
Report of Operation Date of Procedure: 01/10/24 Pre-Operative Diagnosis: desires sterilizations Post-Operative Diagnosis: Same Surgery/Procedure Performed:: laparoscopic bilateral salpingectomy Description of Surgical Findings:: normal tubes and ovaries and uterus Surgeon: Loulou Solomon assistant clinical director: None Type of Anesthesia: General Special Medications: 0.5% marcaine Specimen's removed: bilateral fallopian tubes Estimated Blood Loss (mL): <5 Fluids Replaced: 500 Description of Procedure: After informed consent was obtained patient was taken to the operating room she was placed in supine position she was given anesthesia. She was then placed in the [facility] stirrups and she was prepped and draped in normal sterile fashion. Bladder was drained prior to the start of procedure. At this time attention was turned to the vaginal portion where weighted speculum placed at posterior fornix vagina single-tooth tenaculum was used to gently grasp the internal the cervix. uterus was gently sounded to approximately 8cm. Uterine manipulator was placed without difficulty. Legs then placed in parallel with the abdomen the tenaculum and the weighted speculum were removed. 2 towel clamps were placed at level of umbilicus. Marcaine was injected infraumbilical and a small incision was made. The 5 mm trocar was placed under direct visualization. CO2 gas was used to insufflate the intra-abdominal cavity. Upon inspection no gross abnormalities appreciated- the uterus tubes and ovaries appeared to be normal. At this time then the LLQ and RLQ ports were placed First Marcaine was injected and small incision was made a knife and the 5 mm trocars were placed. At this time then tubes were traced back to the fimbriated ends. Enseal was used to coagulate and ligate along mesosalpynx bilaterally until tubes removed completely. Good hemostasis was appreciated. At this time procedure was deemed complete successful. The gas was desufflated on from the intra-abdominal cavity. The trochars were removed. Skin was closed using 4-0 Monocryl in a subcutaneous fashion. Dermabond glue was placed. Instrument lap and needle counts were correct ?2. The uterine manipulator was removed. Vaginal sweep was performed it was negative. There were no complications anticipated normal postoperative course for this patient. Procedure Start Time: 07:49 Procedure Stop Time: 08:05 Complications none Admit VTE Documentation VTE Present on Admission: Yes VTE Mechan Device Prophylaxis: SCD's VTE Pharm Prophylaxis ordered?: No Reason prophylaxis not ordered:: Procedure Not Indicated
[2024-01-10] MEDS: Bupivacaine 0.5% PF 10 ML VIAL (07:55)
--- NOTE | 2024-01-10 08:21 | PCM.POST.ANE ---
Anesthesia: Postop Eval I Current Vital Signs Temperature: 97 F Pulse Rate: 105 Blood Pressure: 110/62 Respiratory Rate: 20 Pulse Ox: 96 Assessment Airway patent: Yes Spontaneous unlabored respirations: Yes nausea: No Vomiting: No Anesthesia Complication: No Fluid Hydration Crystalloid volume administer (ml): 500 Total IV fluid infused: 500 Progress Note Anesthesia document: Postop Eval 1 completed: Yes
--- NOTE | 2024-01-10 08:40 | POSTOPAN2_ITS ---
Anesthesia Postop Eval I Sum Postop Eval Completion status Anesthesia document: Postop Eval 1 completed: Yes Anesthesia Postop Eval I Summary Anesthesia Postop Eval I Summary: Anesthesia Postop Eval I: Assessment Summary Airway patent Yes 01/10/24 08:22 CIVIL PREPAREDNESS COORDINATOR.CSIR Spontaneous unlabored Yes 01/10/24 08:22 CIVIL PREPAREDNESS COORDINATOR.CSIR respirations Mental status nausea No 01/10/24 08:22 CIVIL PREPAREDNESS COORDINATOR.CSIR Vomiting No 01/10/24 08:22 CIVIL PREPAREDNESS COORDINATOR.CSIR Anesthesia Postop Eval I: Fluid Summary Crystalloid volume administer 500 01/10/24 08:22 CIVIL PREPAREDNESS COORDINATOR.CSIR (ml) Colloids volume administered ( ml) Blood Product volume administered (ml) Total IV fluid infused 500 01/10/24 08:22 CIVIL PREPAREDNESS COORDINATOR.CSIR Anesthesia Postop Eval I: Summary Notes Anesthesia Complication No 01/10/24 08:22 CIVIL PREPAREDNESS COORDINATOR.CSIR Anesthesia Complication Comment: Post-operative progress note Anesthesia: Postop Eval II Evaluation Mental status: Awake Pain Level: 0 nausea: No Vomiting: No
--- NOTE | 2024-01-10 08:40 | PCM.POSTANE2 ---
Anesthesia Postop Eval I Sum Postop Eval Completion status Anesthesia document: Postop Eval 1 completed: Yes Anesthesia Postop Eval I Summary Anesthesia Postop Eval I Summary: Anesthesia Postop Eval I: Assessment Summary Airway patent Yes 01/10/24 08:22 MARRIAGE COUNSELOR.CSIR Spontaneous unlabored Yes 01/10/24 08:22 MARRIAGE COUNSELOR.CSIR respirations Mental status nausea No 01/10/24 08:22 MARRIAGE COUNSELOR.CSIR Vomiting No 01/10/24 08:22 MARRIAGE COUNSELOR.CSIR Anesthesia Postop Eval I: Fluid Summary Crystalloid volume administer 500 01/10/24 08:22 MARRIAGE COUNSELOR.CSIR (ml) Colloids volume administered ( ml) Blood Product volume administered (ml) Total IV fluid infused 500 01/10/24 08:22 MARRIAGE COUNSELOR.CSIR Anesthesia Postop Eval I: Summary Notes Anesthesia Complication No 01/10/24 08:22 MARRIAGE COUNSELOR.CSIR Anesthesia Complication Comment: Post-operative progress note Anesthesia: Postop Eval II Evaluation Mental status: Awake Pain Level: 0 nausea: No Vomiting: No
[2024-01-10] MEDS: HYDROcodone Bitartrate/Apap 5/325 Tablet PO (09:40)
== END 2024-01-10 11:07 | disposition home or self-care (01) ==
LOC: SDC 05:41 → AC 05:42
PROVIDERS: Anesthesiology; Referring Provider Obstetrics & Gynecology; Visit Provider Obstetrics & Gynecology
PROC: (CPT 58661; principal; 2024-01-10 07:15)
DX: Z30.2 Encounter for sterilization (principal); Z87.891 Personal history of nicotine dependence
CPT/HCPCS: 58661; 00840; 81025; 85027; 88302; J7120; C1760; J2405

== ENCOUNTER 2024-03-20 10:00 | Outpatient (RCR) | payer MEDICAID, SELFPAY ==
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
--- NOTE | 2023-11-14 14:23 | HP.PTREVAL ---
Re-Evaluation Intro: Dr. 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 Please see the progress note below for an update on the physical therapy plan of care! Subjective Subjective: PATIENT REPORTS IT DOESN'T TAKE HER LONG TO GO UP AND DOWN THE STEPS NOW. SHE STATES SHE IS GETTING FASTER AT THINGS NOW. SHE REPORTS SHE WALKING MORE GOING TO STORES MORE. GOOD DAYS AND BAD DAYS. ABLE TO WALK WITH A GALLON OF MILK NOW BUT DIFFICULT. STATES SHE WOULD LIKE TO CONTINUE PT SINCE IT IS HELPING. Objective Objective/Function: PATIENT WAS SEEN TODAY FOR RE-ASSESSMENT OF PROGRESS TOWARD THE SET PT GOALS AND THE NEED FOR FURTHER PHYSICAL THERAPY VS READINESS FOR DISCHARGE. OVER-ALL SHE IS CONTINUING TO MAKE GOOD PROGRESS WITH PT AND IS A GOOD CANDIDATE TO CONTINUE PT. PATIENT IS AGREEABLE. UPON EXAM TODAY: THIS PATIENT AMBULATES INDEP'LY INTO PT WITH IMPROVED GAIT PATTERN WITHOUT ANY AD'S OR LOB AND EQUAL WT BEARING TIME DESHAWN LE'S. DEVIATIONS ARE NORMALIZING. ROM deficit: DECREASED HIP EXTENSION, ABDUCTION, FLEXION AND IR ROM. R HIP FLEXION 122 DEG AND L 132 DEG IN LYING WITH ERP. DESHAWN HS AND CALF TIGHTNESS. Motor deficit: R HIP 4-/5, L 4/5, KNEES 5/5, ANKLES 5/5. Lumbar mvmt loss: flex - MOD - SLOWLY IMPROVING. DIFFICULT. ext - NAMAN - SLIGHT BEND BACKWARDS. R SG - MOD L SG - MOD PATIENT C/O INCREASED PAIN IN SACRAL AREA AND TIGHTNESS/GURADING IN LOW BACK MUSCLES WITH LUMBAR ROM TESTING. WEAKNESS STILL EVIDENT DURING MVMT. Core strength: FAIR Balance/Special Test Scores Lower Extremity Functional Score: 34 TUG Test Time Seconds: 12.58 - NO AD. 30 Second Chair Rise Test Seconds: 7 WITH NO UE ASSIST. Plan Plan Plan: CONTINUE PT 2X'S A WK X 4-6 WKS: CORE STRENGTH AND STABILIZATION TRAINING. MANUAL LUMBAR AND HIP STM/STRETCHING. GAIT AND BALANCE TRAINING. DESHAWN LE ROM, STRETCHING AND STRENGTHENING. Balance/Gait/Functional tests Balance/Special Test Scores Lower Extremity Functional Score: 36 TUG Test Time Seconds: 26.52 Tug Test: 20-30sec.=variable mobility 30 Second Chair Rise Test Seconds: 3 6 Minute Walk Test: 195.07 meters / 640 feet without AD Goals Goals Goal 1:: DECREASE C/O LOWER BODY PAIN BY AT LEAST 25% TO EASE ADL'S. Goal Time Frame: 4-6 Weeks Goal Progress: Goal Met Goal 2:: PATIENT WILL COMPLETE 6 STANDS WITH ONE UE ASSIST IN 30 SECS TO DEMONSTRATE IMPROVED FUNCTIONAL STRENGTH - GOAL MET NEW GOAL: PATIENT WILL COMPLETE 9 STANDS WITH ONE UE ASSIST IN 30 SECS TO DEMONSTRATE IMPROVED FUNCTIONAL STRENGTH Goal Time Frame: 2-4 Weeks Goal Progress: Goal Met Goal 3:: PATIENT WILL COMPLETE TUG IN < 15 SECS WITHOUT AD TO DEMONSTRATE IMPROVED GAIT STABILITY - GOAL MET NEW GOAL: PATIENT WILL COMPLETE TUG IN < 10 SECS WITHOUT AD TO DEMONSTRATE IMPROVED GAIT STABILITY Goal Time Frame: 4-6 Weeks Goal Progress: Progressing Goal 4:: PATIENT WILL BE ABLE TO ASCEND AND DESCEND STEPS RECIPROCALLY WITH ONE HR WITHOUT LIMITATION. Goal Time Frame: 6-8 Weeks Goal Progress: NT TODAY Goal 5:: PATIENT WILL BE INDEP WITH A HEP FOR CONTINUED IMPROVEMENT ONCE FORMAL PHYSICAL THERAPY CONCLUDES. Goal Time Frame: 8-12 Weeks Goal Progress: Progressing Anticipated Interventions Anticipated Interventions Patient/Client Instruction: Educate patient on: Condition, Plan of Care and Risk Factors For the Purpose of:: To improve self management Therapeutic Exercise to Include: Strength training, Endurance training, Body mechanics, Postural training, Flexibilty training, Gait and locomotor training, Neuromotor development, In an aquatic setting and Dynamic Lumbar Stabilization For the Purpose of:: To decrease pain, To increase ROM, To improve muscle performance and motor function, To increase tolerance to activity/condition/position, To improve ability of physical actions for home/community/work/leisure, To improve gait and locomotor functions, To increase flexibility/ROM, To improve endurance and To improve safety with gait Re-Evaluation Ending Re-evaluation ending: Please do not hesitate to contact me at [phone] by phone or if you have questions or concerns regarding this new plan of care! Sincerely, Belen Wen, PT, Cert MDT
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
--- NOTE | 2024-02-26 15:01 | HP.PTREVAL ---
Re-Evaluation Intro: Dr. 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 Please see the progress note below for an update on the physical therapy plan of care! Subjective Subjective: PATIENT REPORTS SHE HAS HAD TO CANCEL A COUPLE OF VISITS DUE TO THINGS GOING ON AT HOME. PATIENT REPORTS SHE CAN LIFT AND CARRY A GALLON OF MILK NOW. SHE STATES SHE CAN WALK FURTHER NOW - [place] AND WAS ABLE TO WALK TO A SHOP AND BE IN THE SHOP FOR ABOUT 3 HOURS WITH HER AUNT. STATES SHE PAYS FOR IT LATER BUT CAN DO IT. December. HAD HER TUBES TIED. STATES DR. COOK SAW HER AFTER HAVING HER TUBES TIED AND TOLD HER SHE WAS GOING TO HAVE PAIN BUT RELEASED HER FROM ALL RESTRICTIONS INCLUDING ALL LIFTING RESTRICTIONS. Objective Objective/Function: THIS IS PATIENTS FIRST VISIT SINCE 12/27/23. UPON EXAM TODAY THERE HAS BEEN SOME IMPROVEMENT IN HERE BACK ROM, HER HIP ROM, HER CORE AND HER LEG STRENGTH. SHE IS A GOOD CANDIDATE TO RESUME PT FOR FOR FURTHER STRENGTHENING OR FUNCTIONAL CAPACITY ASSESSMENT TO HELP WITH SAFE RETURN TO WORK. THIS PATIENT AMBULATED INDEP'LY INTO PT WITHOUT ANY AD'S OR LOB AND EQUAL WT BEARING TIME DESHAWN LE'S LAST RE-CHECK 12-10-23 HOWEVER SHE PRESENTS TO PT TODAY WITH INDEP GAIT LIMPING ON HER LLE. HER LIMP IS INTERMITTENT THROUGHOUT THE SESSION. ROM deficit: IN SUPINE - PATIENT HAS FULL DESHAWN HIP FLEXION ROM - SHE IS ABLE TO GET THIGH TO CHEST BILATERALLY. -30 DEG KNEE EXT IN 90/90 POSITION LLE, -20 DEG RLE. DESHAWN ANKLE ROM WFL. Motor deficit: R HIP 4/5, L 4/5, KNEES 5/5, ANKLES 5/5. INDEP TRANSFER SIT TO STAND WITHOUT UE ASSIST. Lumbar mvmt loss: flex - NIL - HANDS TO TOES ext - MOD - C/O INCREASES DESHAWN LB - NW R SG - MOD - C/O INCREASES BACK - NW L SG - MIN - C/O INCREASES BACK - NW OTHER: PATIENT ABLE TO DEMO FULL SQUAT POSITION WITH ARMS FULLY EXTENDED TO DEMO HOW SHE GETS THINGS AT HOME. ONE UE ASSIST TO RETURN TO STANDING. Core strength: GOOD Lower Extremity Functional Score: 47 TUG Test Time Seconds: NT 30 Second Chair Rise Test Seconds: NT 6 MIN WALK TEST: NT Plan Plan Plan: RESUME PT 3X'S X 8-12 WKS CORE STRENGTH AND STABILIZATION TRAINING. MANUAL LUMBAR AND HIP STM/STRETCHING. GAIT AND BALANCE TRAINING. DESHAWN LE ROM, STRETCHING AND STRENGTHENING. Balance/Gait/Functional tests Balance/Special Test Scores Lower Extremity Functional Score: 47 TUG Test Time Seconds: 10.43 Tug Test: <10 sec.=free mobile 30 Second Chair Rise Test Seconds: 8 6 Minute Walk Test: 977 FEET Goals Goals Goal 1:: DECREASE C/O LOWER BODY PAIN BY AT LEAST 25% TO EASE ADL'S - GOAL MET. NEW GOAL - DECREASE C/O LOWER BODY PAIN BY AT LEAST 75% TO EASE ADL'S. Goal Time Frame: 4-6 Weeks Goal Progress: Progressing Goal 2:: PATIENT WILL COMPLETE 6 STANDS WITH ONE UE ASSIST IN 30 SECS TO DEMONSTRATE IMPROVED FUNCTIONAL STRENGTH - GOAL MET NEW GOAL: PATIENT WILL COMPLETE 9 STANDS WITH ONE UE ASSIST IN 30 SECS TO DEMONSTRATE IMPROVED FUNCTIONAL STRENGTH Goal Time Frame: 2-4 Weeks Goal Progress: Progressing Goal 3:: PATIENT WILL COMPLETE TUG IN < 15 SECS WITHOUT AD TO DEMONSTRATE IMPROVED GAIT STABILITY - GOAL MET NEW GOAL: PATIENT WILL COMPLETE TUG IN < 10 SECS WITHOUT AD TO DEMONSTRATE IMPROVED GAIT STABILITY Goal Time Frame: 4-6 Weeks Goal Progress: Progressing Goal 4:: PATIENT WILL BE ABLE TO ASCEND AND DESCEND STEPS RECIPROCALLY WITH ONE HR WITHOUT LIMITATION. Goal Time Frame: 6-8 Weeks Goal Progress: NT TODAY Goal 5:: PATIENT WILL BE INDEP WITH A HEP FOR CONTINUED IMPROVEMENT ONCE FORMAL PHYSICAL THERAPY CONCLUDES. Goal Time Frame: 8-12 Weeks Goal Progress: Progressing Anticipated Interventions Anticipated Interventions Patient/Client Instruction: Educate patient on: Condition, Plan of Care and Risk Factors For the Purpose of:: To improve self management Therapeutic Exercise to Include: Strength training, Endurance training, Body mechanics, Postural training, Flexibilty training, Gait and locomotor training, Neuromotor development, In an aquatic setting and Dynamic Lumbar Stabilization For the Purpose of:: To decrease pain, To increase ROM, To improve muscle performance and motor function, To increase tolerance to activity/condition/position, To improve ability of physical actions for home/community/work/leisure, To improve gait and locomotor functions, To increase flexibility/ROM, To improve endurance and To improve safety with gait Re-Evaluation Ending Re-evaluation ending: Please do not hesitate to contact me at [phone] by phone or if you have questions or concerns regarding this new plan of care! Sincerely, Belen Wen PT, Cert MDT
== END 2024-03-20 19:00 | disposition home or self-care (01) ==
LOC: PT 10:00
PROVIDERS: Referring Provider Orthopaedic Surgery; Visit Provider Orthopaedic Surgery
DX: S32.811D Multiple fractures of pelvis with unstable disruption of pelvic ring, subsequent encounter for fracture with routine healing (principal)
CPT/HCPCS: 97110; 97112; 97140; 97162; 97164; 97530

== ENCOUNTER 2024-04-01 09:00 | Outpatient (RCR) | payer MEDICAID, SELFPAY ==
--- NOTE | 2024-04-01 15:32 | HP.PTDCSUM ---
Discharge Summary D/C summary: It has been my pleasure to treat MIGUEL CRUZ referred by Dr. 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 Discharge Date: 04/01/24 Please see the following information for a summary of their discharge status. Subjective Subjective: PATIENT REPORTS DR. GAO DISCHARGED HER. SHE REPORTS HER SYMPTOMS ARE STAYING THE SAME OVER ALL. SHE REPORTS SHE HAS GOOD DAYS AND BAD DAYS. SHE REPORTS CONSTANT PAIN IN HER LOW BACK, PELVIS AND DESHAWN HIPS RANGING 0/10 TO 9/10. DECREASED PAIN WITH WARM BATH AND INCREASED PAIN TO 9/10 WITH MVMT, ACTIVITY AND THINGS LIKE LIFTING, BENDING AND CLEANING THE HOUSE. DRIVING AND SITTING CAN ALSO PRODUCE A LOT OF PAIN. Pain LB, hips: Pain Intensity (Out of 10): 3 Objective Objective/Function: THIS PATIENT AMBULATES INDEP'LY INTO PT WITHOUT ANY AD'S OR LOB LIMPING ON HER L LE. SHE WALKS WITH WIDE DEISY, DECREASED DESHAWN STRIDE LENGTH AND DECREASED HEEL STRIKE AND TOE OFF PHASES OF GAIT. SHE LIMPS INTERMITTENTLY DURING THIS PT SESSION. ROM deficit: IN SUPINE - PATIENT HAS FULL DESHAWN HIP FLEXION ROM - SHE IS ABLE TO GET THIGH TO CHEST BILATERALLY. -33 DEG KNEE EXT IN 90/90 POSITION LLE, -22 DEG RLE. DESHAWN ANKLE ROM WFL. STANDING ACTIVE HIP ABD DESHAWN IS 30 DEG WITH C/O IPSILATERAL HIP PAIN AND LOW BACK PAIN WITH TESTING EA SIDE. Motor deficit: 5/5 DESHAWN LE'S WITH C/O PAIN WITH DESHAWN HIP TESTING. INDEP TRANSFER SIT TO STAND WITHOUT UE ASSIST - SEE 30 SEC STS TEST BELOW. Lumbar mvmt loss: flex - NIL - HANDS TO TOES ext - MOD - C/O INCREASES DESHAWN LB AND ANTERIOR PELVIC PAIN IN PUBIC SYMPHYSIS REGION - W R SG - MOD - C/O INCREASES BACK - NW L SG - MIN - C/O INCREASES BACK - NW OTHER: PATIENT ABLE TO DEMO FULL SQUAT POSITION WITH ARMS FULLY EXTENDED TO DEMO HOW SHE GETS THINGS AT HOME. ONE UE ASSIST TO RETURN TO STANDING. Core strength: GOOD Lower Extremity Functional Score: 47 TUG Test Time Seconds: 11.31 SEC WITH NO ASSISTIVE DEVICE AND NO LOB. 30 Second Chair Rise Test Seconds: 8 WITH NO UE ASSIST FROM STANDARD CHAIR. 6 MIN WALK TEST: NT OVER-ALL THIS PATIENT IS NOT CONTINUING TO SHOW IMPROVEMENT WITH PHYSICAL THERAPY. WE HAVE HAD TO REDUCE THE INTENSITY AND/OR VOLUME OF PT THE LAST FEW VISITS DUE TO C/O'S OF PAIN. LEFS SCORE DECREASED FROM 47 AT LAST RE-CHECK TO 34 THIS VISIT. SHE IS APPROPRIATE FOR DISCHARGE TO [facility] AT THIS TIME AND FOLLOW UP WITH DR. FERREIRA. PATIENT IS AGREEABLE. Goals Goal 1:: DECREASE C/O LOWER BODY PAIN BY AT LEAST 25% TO EASE ADL'S - GOAL MET. NEW GOAL - DECREASE C/O LOWER BODY PAIN BY AT LEAST 75% TO EASE ADL'S Goal Progress: Not Progressing Goal 2:: PATIENT WILL COMPLETE 6 STANDS WITH ONE UE ASSIST IN 30 SEC TO DEMONSTRATE IMPROVED FUNCTIONAL STRENGTH - GOAL MET NEW GOAL - PATIENT WILL COMPLETE 9 STANDS WITH ONE UE ASSIST IN 30 SECT TO DEMONSTRATE IMPROVED FUNCTIONAL STRENGTH Goal Progress: Not Progressing Goal 3:: PATIENT WILL COMPLETE TUG IN <15 SECS WITHOUT AD TO DEMONSTRATE IMPROVED GAIT STABILITY - GOAL MET PATIENT WILL COMPLETE TUG IN <10 SECS WITHOUT AD TO DEMONSTRATE IMPROVED GAIT STABILITY Goal Progress: Not Progressing Goal 4:: PATIENT WILL BE ABLE TO ASCEND AND DESCEND STEPS RECIPROCALLY WITH ONE HR WITHOUT LIMITATION Goal Progress: Not Progressing Goal 5:: PATIENT WILL BE INDEP WITH A HEP FOR CONTINUED IMPROVEMENT ONCE FORMAL PHYSICAL THERAPY CONCLUDES. Plan Plan: D/C DUE TO LACK OF ON-GOING PROGRESS. PATIENT REPORTS SHE HAS BEEN DISCHARGED/RELEASED FROM DR. GAO AND SHE PLANS TO FOLLOW UP WITH DR. FERREIRA. D/C Information d/c sentence: If there are questions or concerns regarding this patient's physical therapy, please feel free to call me at [phone]. Thank you for the referral of this patient. Sincerely, Belen Wen, PT, Cert MDT Balance/Gait/Functional tests Balance/Special Test Scores Lower Extremity Functional Score: 34 TUG Test Time Seconds: 11.31 Tug Test: <20 sec.=mostly independent 30 Second Chair Rise Test Seconds: 8
== END 2024-04-01 19:00 | disposition home or self-care (01) ==
LOC: PT 09:00
PROVIDERS: Referring Provider Orthopaedic Surgery; Visit Provider Orthopaedic Surgery
DX: S32.811D Multiple fractures of pelvis with unstable disruption of pelvic ring, subsequent encounter for fracture with routine healing (principal); N39.3 Stress incontinence (female) (male)
CPT/HCPCS: 97110; 97530

== ENCOUNTER → 2024-05-06 | Outpatient (CLI) | payer MEDICAID, SELFPAY | END | disposition home or self-care (01) | LOC: PSN 12:25 | PROVIDERS: Referring Provider Anesthesiology Pain Medicine; Visit Provider Anesthesiology Pain Medicine | DX: M54.9 Dorsalgia, unspecified (principal) | CPT/HCPCS: 95886; 95911 ==

== ENCOUNTER 2024-06-11 12:00 | Outpatient (RCR) | payer MEDICAID, SELFPAY ==
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
== END 2024-06-11 19:00 | disposition home or self-care (01) ==
LOC: OT 12:00
PROVIDERS: Referring Provider Anesthesiology Pain Medicine; Visit Provider Anesthesiology Pain Medicine
DX: M54.9 Dorsalgia, unspecified (principal)
CPT/HCPCS: 97750